=== PATIENT | male | born 1985 | race Two or more races ===

== ENCOUNTER 2017-01-09 16:28 | Emergency (ER) | payer MEDICAID ==
[~2017-01-09] VITALS: Ht 180.3 cm; Wt 79.4 kg
[~2017-01-09 16:28] MED LIST: IBUP800T24 PO
[2017-01-09 16:42] VITALS: BP 118/80
== END 2017-01-09 18:20 | disposition home or self-care (01) ==
LOC: ER 16:28
DX: S02.2XXA Fracture of nasal bones, initial encounter for closed fracture (principal); F17.210 Nicotine dependence, cigarettes, uncomplicated; J45.909 Unspecified asthma, uncomplicated; W51.XXXA Accidental striking against or bumped into by another person, initial encounter; Y93.72 Activity, wrestling; Y92.89 Other specified places as the place of occurrence of the external cause; Y99.8 Other external cause status
CPT/HCPCS: 70160

== ENCOUNTER 2018-08-17 00:13 | Emergency (ER) | payer MEDICAID ==
[~2018-08-17] VITALS: Ht 177.8 cm; Wt 83.9 kg
[2018-08-17 01:05] LABS: Basophils # (auto) 0.1 uL; Basophils % (auto) 0.9 % (0.0-2.0); Eosinophils # (auto) 0.4 uL; Eosinophils % (auto) 6.3 % (0.0-7.0); Hematocrit 42.8 % (41.0-53.0); Hemoglobin 14.7 g/dL (13.5-17.5); Lymphocytes # (auto) 2.3 uL; Lymphocytes % (auto) 32.9 % (10.0-50.0); Mean Corpuscular Hemoglobin 28.6 pg (28.0-32.0); Mean Corpuscular Hgb Conc. 34.2 g/dL (32.0-36.0); Mean Corpuscular Volume 83.5 fL (80.0-100.0); Monocytes # (auto) 0.7 uL; Monocytes % (auto) 9.6 % (0.0-12.0); Neutrophils # (auto) 3.5 uL; Neutrophils % (auto) 50.3 % (37.0-80.0); Nucleated Red Blood Cells % 0.1 %; Platelet Count (auto) 329 10^3/uL (140-450); Red Blood Cells 5.13 10^6/uL (4.5-5.90); Red Cell Distribution Width 12.8 % (11.8-14.3); White Blood Cell 6.9 10^3/uL (4.4-10.8)
[2018-08-17 01:21] LABS: INR 1.07 (0.9-1.15); Partial Thromboplastin Time 29.2 sec (23.78-33.04); Prothrombin Time 11.4 sec (9.27-12.13)
[2018-08-17 01:23] LABS: Albumin 3.8 g/dL (3.4-5.0); Anion Gap 11 (5-15); BUN/Creatinine Ratio 20.5; Blood Urea Nitrogen 18 mg/dL (7-18); Calcium 8.4 mg/dL (8.5-10.1); Carbon Dioxide 24 mmol/L (21-32); Chloride 104 mmol/L (98-107); GFR African American 129 mL/min; GFR Non-African American 107 mL/min; Glucose 90 mg/dL (74-106); Magnesium 2.3 mg/dL (1.6-2.6); Sodium 139 mmol/L (136-145)
[2018-08-17 01:31] LABS: Alanine Aminotransferase 59 U/L (16-61); Alkaline Phosphatase 103 U/L (45-117); Aspartate Aminotransferase 24 U/L (15-37); Bilirubin, Total 0.3 mg/dL (0.2-1.0); Total Protein 7.4 g/dL (6.4-8.2)
[2018-08-17 02:25] LABS: Urine Bacteria NONE SEEN /hpf (None Seen); Urine Blood Negative /uL (Negative); Urine Specific Gravity 1.016 (1.001-1.035); Urine WBC <1 /hpf (0 - 3)
[2018-08-17] MEDS ORDERED: SODIUM CHLORIDE 0.9% 1,000 ML IV ONE (02:45)
[2018-08-17] MEDS ORDERED: FAMOTIDINE (10MG/ML) 2ML VL IV ONE (02:45)
[2018-08-17] MEDS ORDERED: HEPARIN SODIUM (PORCINE) 5000 UNITS/ML 1ML VIAL IV ONE (02:45)
[2018-08-17 03:15] VITALS: BP 127/68
== END 2018-08-17 03:45 | disposition home or self-care (01) ==
LOC: ER 00:13
DX: K29.00 Acute gastritis without bleeding (principal); R07.89 Other chest pain; M86.9 Osteomyelitis, unspecified; T82.858A Stenosis of other vascular prosthetic devices, implants and grafts, initial encounter; J45.909 Unspecified asthma, uncomplicated; F17.290 Nicotine dependence, other tobacco product, uncomplicated; Z79.899 Other long term (current) drug therapy; Y83.8 Other surgical procedures as the cause of abnormal reaction of the patient, or of later complication, without mention of misadventure at the time of the procedure; Y92.89 Other specified places as the place of occurrence of the external cause
CPT/HCPCS: 36415; 71045; 80053; 81001; 83735; 84443; 84484; 85025; 85610; 85730; 93005; 93971; 96374; 99284; J1644; J3490